=== PATIENT | female | born 1955 | race Caucasian/White ===

== ENCOUNTER → 2017-04-10 | Outpatient (CLI) | payer MEDICARE, OTHER ==
[~2017-04-10] MED LIST: ALL DAY ALLERGY10 M3 PO; ANEXSIA 7.5/3251 TA1 PO; ASPIRIN325 M1 PO; ATROVENT NEB; BACTROBAN15 GM TOP; BENZONATATE PO; FLONASE ALLERG9.9 ML; FOLIC ACID PO; IBUPROFEN800 MG PO; IPRATROPIU0.2 MG/1 M INH; LAMISIL PO; LEVAQUIN PO; LEVAQUIN750 M1 PO; LORTAB 7.5-3251 EACH PO; NOT RECONCILED; PAXIL10 MG PO; PAXIL30 MG PO; PHENERGAN25 MG PO; PHENOL-SODIUM180 ML MT; POLYTRIM EYE DR10 ML OU; PREDNISONE PO; PREDNISONE10 MG/DOSE PO; SYMBICORT 16010.2 GM IH; VITAMIN D-32000 UNI2 PO
--- NOTE | ~2017-04-10 | US49 ---
[facility] A Service of [facility] RADIOLOGY TEXT RESULTS PATIENT: LAUREN BOSWELL LOCATION: [facility] : 51 UNIT #: [id number] AGE: [address]: Liudmila Brooke MD SEX: F ORDER DR: [id number] [facility]. [place], [place] [address] [id number] O MR#: [id number] Acc #: [id number] NAME: LAUREN BOSWELL : 1955 SEX: F STUDY DATE/TIME: 04/10/2017 14:26 UNIT: [facility] ROOM: STUDY DESCRIPTION: US Extremity Non Vasc Complete Attending Physician: Liudmila Brooke M.D. Referring Physician: Liudmila Brooke M.D. Ordering Physician: Liudmila Brooke M.D. Primary Care Physician: Liudmila Brooke M.D. MEDICAL IMAGING REPORT This report is preliminary unless electronic signature is present EXAM Ultrasound of the left upper extremity soft tissues HISTORY The patient has had a palpable area in the left antecubital fossa for one month. This is associated with pain. TECHNIQUE Grayscale and color Doppler sonographic images were obtained through the area of concern. FINDINGS Within the area of concern, the patient is noted to have a 1.0 x 0.8 x 0.6 cm nodule. The patient reports that this area has increased in size over the past month and again associated with some tenderness. IMPRESSION Within the area of concern, the patient has a relatively well circumscribed 1.0 x 0.8 x 0.6 cm nodule. Its appearance really is most in keeping with a lipoma. However the patient reports that it is increased in size and is causing pain. As such, I would suggest further evaluation with MRI. Dictated by... Angélica Boucher M.D. THIS IS AN ELECTRONICALLY VERIFIED REPORT Angélica Boucher M.D. at 04/12/2017 12:42 PM AFF/ea [facility] A Service [facility] RADIOLOGY TEXT RESULTS PATIENT: LAUREN BOSWELL LOCATION: [facility] #: [id number] : [birth year] UNIT #: [id number] AGE: [address]: Liudmila Brooke MD SEX: F ORDER DR: TD: 04/11/2017 21:49 JOB #: [id number] MEDICAL IMAGING REPORT Page 1 of 1 COPY
== END | disposition home or self-care (01) ==
LOC: CGUS 14:08
DX: R22.32 Localized swelling, mass and lump, left upper limb (principal)
CPT/HCPCS: 76881

== ENCOUNTER 2017-04-16 15:32 | Observation (INO) | payer MEDICARE, OTHER ==
--- NOTE | ~2017-04-16 | CR72 ---
[facility] A Service of [facility] RADIOLOGY TEXT RESULTS PATIENT: LAUREN BOSWELL LOCATION: [facility] : 51 UNIT #: [id number] AGE: [address]: Clement Chapman MD SEX: F ORDER DR: [id number] [facility] [address] [facility]. [place], [place] [address] [id number] MR#: [id number] Acc #: [id number] NAME: LAUREN BOSWELL : 1955 SEX: F STUDY DATE/TIME: 04/16/2017 16:34 UNIT: [facility] ROOM: [facility] STUDY DESCRIPTION: CR Chest Single View Portable Attending Physician: Clement Chapman M.D. Ordering Physician: Reynaldo Kirkland M.D. Primary Care Physician: Liudmila Brooke M.D. MEDICAL IMAGING REPORT This report is preliminary unless electronic signature is present EXAM Frontal chest, 04/16/17. INDICATION 61-year-old female with chest pain, cough, left arm pain, symptoms began today. History of skin cancer. Tobacco abuse 51 years. COPD and bronchitis. TECHNIQUE Frontal chest compared with 11/28/13. FINDINGS Cardiac silhouette is within normal limits. There is elongation of the thoracic aorta related to underlying pulmonary hyperinflation. The appearance is stable. The vascularity is normal. Coarsened interstitial markings suggest an element of underlying fibrosis in the lung bases. No effusion, pneumothorax or dense consolidation. Atherosclerotic calcifications present. IMPRESSION 1. Pulmonary hyperinflation and chronic-appearing lung changes. No definite superimposed active disease. Dictated by... Andrew Quintana M.D. THIS IS AN ELECTRONICALLY VERIFIED REPORT Andrew Quintana M.D. at 04/17/2017 7:41 AM Kena TD: 04/16/2017 21:03 JOB #: [id number] [facility] A Service of [facility] RADIOLOGY TEXT RESULTS PATIENT: LAUREN BOSWELL LOCATION: [facility] : 51 UNIT #: [id number] AGE: [address]: Clement Chapman MD SEX: F ORDER DR: MEDICAL IMAGING REPORT Page 1 of 1 COPY
--- NOTE | ~2017-04-16 | EKG ---
PATIENT: LAUREN BOSWELL UNIT #: [id number] Ventricular Rate: 65 BPM Atrial Rate: 65 BPM P-R Interval: 136 ms QRS Duration: 94 ms Q-T Interval: 424 ms QTC Calculation(Bezet): 440 ms P [place]: 55 degrees Calculated R [place]: 73 degrees Calculated T [place]: 82 degrees Diagnosis Line: Normal sinus rhythm Diagnosis Line: Incomplete right bundle branch block Diagnosis Line: T wave abnormality, consider anterior ischemia Diagnosis Line: Abnormal ECG Diagnosis Line: No previous ECGs available Diagnosis Line: Confirmed by EMIR EVERETT MD ([id number]) on 04/17/2017 Diagnosis Line: 6:38:53 PM INTERPRETING MD: MARGUERITE VALLEJO
[~2017-04-16 15:32] MED LIST changes: -ALL DAY ALLERGY10 M3 PO; -BACTROBAN15 GM TOP; -FLONASE ALLERG9.9 ML; -FOLIC ACID PO; -IBUPROFEN800 MG PO; -IPRATROPIU0.2 MG/1 M INH; -LAMISIL PO; -LORTAB 7.5-3251 EACH PO; -PAXIL30 MG PO; -POLYTRIM EYE DR10 ML OU; -VITAMIN D-32000 UNI2 PO
[2017-04-16 16:23] LABS: BASOPHIL# 0.1 X10e3 (0-0.3); EOSINOPHIL# 0.6 X10e3 (0-0.7); HEMATOCRIT 45.3 % (35.0-45.0); HEMOGLOBIN 14.9 gm/dL (12.0-16.0); LYMPHOCYTE# 5.7 X10e3 (1.0-3.5); LYMPHOCYTE% 38.7 % (17.0-45.0); MEAN CELL VOLUME 94.7 FL (83-96); MEAN CORPUSCULAR HEMOGLOBIN 31.2 PG (28-34); MEAN CORPUSCULAR HGB CONC 32.9 g/dL (30-36); MEAN PLATELET VOLUME 7.6 FL (6.5-11.5); MONOCYTE# 0.7 X10e3 (0-1.0); MONOCYTE% 4.4 % (3.0-12.0); NEUTROPHIL# 7.6 X10e3 (1.5-7.1); NEUTROPHIL% 51.9 % (40-75); PLATELET COUNT 217 X10e3 (140-420); RED BLOOD COUNT 4.78 X10e (3.90-5.30); RED CELL DISTRIBUTION WIDTH 14.1 % (11.0-15.5); WHITE BLOOD COUNT 14.7 X10e3 (4.0-10.5)
[2017-04-16 16:26] LABS: DIFF IND NO
[2017-04-16 16:34] LABS: POC - CKMB 1.1 ng/mL (0.0-7.9); POC - TROPONIN <0.05 ng/mL (<=0.05)
[2017-04-16 16:43] LABS: PARTIAL THROMBOPLASTIN TIME 26.2 SECONDS (23.5-31.3)
[2017-04-16 16:53] LABS: ALBUMIN SERUM 3.7 g/dL (3.5-5.0); BILIRUBIN, DIRECT 0.1 mg/dL (0.0-0.2); BILIRUBIN,INDIRECT 0.5 mg/dL (0.0-0.9); BILIRUBIN,TOTAL 0.6 mg/dL (0.2-2.0); BUN/CREATININE RATIO 22.85; CALCIUM SERUM 9.2 mg/dL (8.4-10.2); CREATININE SERUM 0.7 mg/dL (0.6-1.4); GLOM FILT RATE Estimated 92.2 mL/min (>60); POTASSIUM 3.7 mmol/L (3.5-5.1); PROTEIN TOTAL SERUM 6.7 g/dL (6.0-8.3)
[2017-04-16] MEDS ORDERED: BACTROBAN15 GM TOP (18:41)
[2017-04-16] MEDS ORDERED: ALL DAY ALLERGY10 M3 PO (18:42)
[2017-04-16] MEDS ORDERED: FOLIC ACID PO (18:43)
[2017-04-16] MEDS ORDERED: FLONASE ALLERG9.9 ML (18:43)
[2017-04-16] MEDS ORDERED: LORTAB 7.5-3251 EACH PO (18:45)
[2017-04-16] MEDS ORDERED: IBUPROFEN800 MG PO (18:45)
[2017-04-16] MEDS ORDERED: IPRATROPIU0.2 MG/1 M INH (18:53)
[2017-04-16] MEDS ORDERED: PAXIL30 MG PO (18:54)
[2017-04-16] MEDS ORDERED: POLYTRIM EYE DR10 ML OU (19:01)
[2017-04-16 19:06] LABS: POC - CKMB 1.2 ng/mL (0.0-7.9); POC - TROPONIN <0.05 ng/mL (<=0.05)
[2017-04-16] MEDS ORDERED: LAMISIL PO (19:06)
[2017-04-16] MEDS ORDERED: PHENERGAN25 MG PO (19:06)
[2017-04-16] MEDS ORDERED: VITAMIN D-32000 UNI2 PO (19:07)
== END 2017-04-16 22:46 | disposition left against medical advice (07) ==
LOC: CED 15:32 → CEDOF 18:43 → C5C 19:51
PROVIDERS: Emergency Medicine
DX: R07.9 Chest pain, unspecified (principal); I10 Essential (primary) hypertension
CPT/HCPCS: 36415; 71010; 80048; 80076; 82553; 83880; 84484; 85025; 85610; 85730; 93005; 99285; G0378; J1885